=== PATIENT | female | born 1955 | race African-American/Black ===

== ENCOUNTER 2021-07-13 13:12 | Inpatient (IN) ==
[2021-07-13] MEDS ORDERED: MORPHINE 10 MG/1 ML VIAL IV STA (13:31)
[2021-07-13] MEDS ORDERED: NITROGLYCERIN 2% OINT 1 INCH/GM PACK TOP STA (13:31)
[2021-07-13] MEDS ORDERED: ONDANSETRON 4 MG/2 ML VIAL IV STA (13:31)
[2021-07-13 13:36] LABS: Basophils % 0.2 % (0.0-0.8); Eosinophils % 0.2 % (0.00-10.9); Hematocrit 34.6 VOL% (35.7-47.0); Hemoglobin 11.2 GM/DL (12.0-16.0); Immature Granulocytes % 0.5 %; Immature Granulocytes Absolute 0.05 #; Lymphocytes # 1.6 10*3/uL (1.4-4.0); Lymphocytes % 16.4 % (21.3-54.2); Mean Corpuscular HGB Conc 32.4 GM/DL (32-36); Mean Corpuscular Volume 87.8 FL (87-102); Mean Platelet Volume 9.5 FL (9.6-12.0); Monocytes # 1.2 10*3/uL (0.11-0.8); Monocytes % 12.5 % (1.7-12.7); Neutrophils % 70.2 % (38.7-73.9); Platelet Count 444 T/CUMM (130-400); Red Blood Count 3.94 MC/CUMM (3.8-5.5); White Blood Count 9.7 T/CUMM (4-12)
[2021-07-13] MEDS ORDERED: MORPHINE 2 MG/1 ML SYRINGE ONE (13:42)
[2021-07-13 14:01] LABS: Alanine Aminotransferase 19 U/L (13-56); Albumin 3.1 G/DL (3.4-5.0); Alkaline Phosphatase 106 U/L (45-117); Aspartate Amino Transferase 66 U/L (0-37); Bilirubin,Total < 0.39 MG/DL (0.20-1.00); Blood Urea Nitrogen 10 MG/DL (7-18); Carbon Dioxide 25 MMOL/L (21-32); Chloride 105 MMOL/L (98-107); Glucose 98 MG/DL (74-106); Osmolality,Calculated 271.8 MOS/KG (273-304); Potassium 3.8 MMOL/L (3.5-5.1); Sodium 137 MMOL/L (136-145); Total Protein 7.3 G/DL (6.4-8.2)
[2021-07-13] MEDS ORDERED: HEPARIN 5,000 UNIT/1 ML VIAL IV STA (14:01)
[2021-07-13] MEDS ORDERED: MORPHINE 2 MG/1 ML SYRINGE IV PRN (14:26)
[2021-07-13] MEDS ORDERED: DOCUSATE SODIUM 100 MG CAPSULE PO PRN (14:26)
[2021-07-13] MEDS ORDERED: guaiFENesin/DM ER 600-30 MG TABLET PO PRN (14:26)
[2021-07-13] MEDS ORDERED: hydrALAZINE 20 MG/1 ML VIAL IV PRN (14:26)
[2021-07-13] MEDS ORDERED: POTASSIUM CHLORIDE 20 MEQ TABLET PO PRN (14:26)
[2021-07-13] MEDS ORDERED: diphenhydrAMINE CAP 25 MG CAPSULE PO PRN (14:26)
[2021-07-13] MEDS ORDERED: ALUMINUM/MAGNES/SIMETH MAX STR 30 ML UDCUP PO PRN (14:26)
[2021-07-13] MEDS ORDERED: ZALEPLON 5 MG CAPSULE PO PRN (14:26)
[2021-07-13] MEDS ORDERED: MAGNESIUM SULF RIDER 2 GM/50 ML PREMIX IV PRN ×2 (14:26→14:37)
[2021-07-13] MEDS ORDERED: MAGNESIUM SULF RIDER 4 GM/100 ML PREMIX IV PRN (14:26)
[2021-07-13] MEDS ORDERED: ACETAMINOPHEN 325 MG TABLET PO PRN (14:26)
[2021-07-13] MEDS ORDERED: PROMETHAZINE 25 MG TABLET PO PRN (14:26)
[2021-07-13] MEDS ORDERED: POTASSIUM CHLORIDE RIDER 10 MEQ/100 ML PREMIX IV PRN (14:37)
[2021-07-13] MEDS ORDERED: DIAZEPAM 5 MG TABLET PO ONE (14:37)
[2021-07-13] MEDS ORDERED: diphenhydrAMINE CAP 50 MG CAPSULE PO ONE (14:37)
[2021-07-13] MEDS ORDERED: HEPARIN/NACL 0.9% 2 UNITS/ML 2,000 UNIT/1,000 ML BAG IV ONE (14:44)
[2021-07-13] MEDS: MORPHINE 2 MG/1 ML SYRINGE IV PRN (14:46)
[2021-07-13] MEDS: NITROGLYCERIN 2% OINT 1 INCH/GM PACK TOP SCH ×2 (14:49→20:37)
[2021-07-13] MEDS ORDERED: HYDROmorphone 1 MG/1 ML SYRINGE ONE (15:15)
[2021-07-13] MEDS ORDERED: MIDAZOLAM 2 MG/2 ML VIAL ONE (15:15)
[2021-07-13] MEDS ORDERED: VERAPAMIL 5 MG/2 ML VIAL ONE (15:27)
[2021-07-13] MEDS ORDERED: NITROGLYCERIN DRIP 50 MG/250 ML BOTTLE IV ONE (15:28)
[2021-07-13] MEDS: SODIUM CHLORIDE 0.45% 1,000 ML IV SCH ×2 (18:20→23:02)
[2021-07-13] MEDS: METOPROLOL TARTRATE 25 MG TABLET PO SCH (20:37)
[2021-07-14] MEDS: NITROGLYCERIN 2% OINT 1 INCH/GM PACK TOP SCH ×2 (02:15→09:09)
[2021-07-14] MEDS: SODIUM CHLORIDE 0.45% 1,000 ML IV SCH ×3 (02:39→16:00)
[2021-07-14] MEDS: MORPHINE 2 MG/1 ML SYRINGE IV PRN ×5 (02:41→20:29)
[2021-07-14 05:27] LABS: Basophils % 0.3 % (0.0-0.8); Eosinophils # 0.1 10*3/uL (0.0-0.87); Eosinophils % 0.6 % (0.00-10.9); Hematocrit 33.1 VOL% (35.7-47.0); Hemoglobin 10.3 GM/DL (12.0-16.0); Immature Granulocytes % 0.4 %; Immature Granulocytes Absolute 0.04 #; Lymphocytes # 2.5 10*3/uL (1.4-4.0); Lymphocytes % 23.4 % (21.3-54.2); Mean Corpuscular HGB Conc 31.1 GM/DL (32-36); Mean Corpuscular Volume 90.9 FL (87-102); Monocytes % 9.7 % (1.7-12.7); Neutrophils % 65.6 % (38.7-73.9); Platelet Count 408 T/CUMM (130-400); Red Blood Count 3.64 MC/CUMM (3.8-5.5); Red Cell Distribution Width 14.9 % (9.3-17.3); White Blood Count 10.6 T/CUMM (4-12)
[2021-07-14 05:49] LABS: Alanine Aminotransferase 20 U/L (13-56); Albumin 2.8 G/DL (3.4-5.0); Alkaline Phosphatase 102 U/L (45-117); Aspartate Amino Transferase 53 U/L (0-37); Bilirubin,Total < 0.39 MG/DL (0.20-1.00); Blood Urea Nitrogen 8 MG/DL (7-18); Calcium 8.5 MG/DL (8.5-10.1); Carbon Dioxide 25 MMOL/L (21-32); Chloride 105 MMOL/L (98-107); Cholesterol 225 MG/DL (50-200); Glucose 91 MG/DL (74-106); HDL Cholesterol 27 MG/DL (40-60); Osmolality,Calculated 272.7 MOS/KG (273-304); Potassium 3.1 MMOL/L (3.5-5.1); Risk Ratio 8.33; Sodium 138 MMOL/L (136-145); Total Protein 7.7 G/DL (6.4-8.2); Triglycerides 205 MG/DL (2-150)
[2021-07-14] MEDS: ROSUVASTATIN 20 MG TABLET PO SCH (09:08)
[2021-07-14] MEDS: ASPIRIN EC 81 MG TABLET PO SCH (09:08)
[2021-07-14] MEDS: PANTOPRAZOLE 40 MG TABLET PO SCH (09:09)
[2021-07-14] MEDS: METOPROLOL TARTRATE 25 MG TABLET PO SCH (09:09)
[2021-07-14] MEDS: HEPARIN DRIP 25,000 UNITS/500 ML PREMIX IV SCH (10:57)
[2021-07-14] MEDS: NITROGLYCERIN DRIP 50 MG/250 ML BOTTLE IV SCH (11:00)
[2021-07-14] MEDS ORDERED: METOPROLOL TARTRATE 25 MG TABLET PO ONE (11:14)
[2021-07-14] MEDS ORDERED: POTASSIUM CHLORIDE 20 MEQ TABLET PO ONE (11:16)
[2021-07-14 11:29] LABS: CKMB % 2.57 %
[2021-07-14 11:37] LABS: High Sensitive Troponin I* 5095.5 ng/L (0-54)
[2021-07-14] MEDS ORDERED: GLUCAGON 1 MG VIAL IM PRN (12:47)
[2021-07-14] MEDS: SPIRONOLACTONE 25 MG TABLET PO SCH (12:55)
[2021-07-14] MEDS ORDERED: DEXTROSE 10% 250 ML BAG IV PRN (13:01)
[2021-07-14] MEDS: METOPROLOL TARTRATE 50 MG TABLET PO SCH (20:24)
[2021-07-15] MEDS: MORPHINE 2 MG/1 ML SYRINGE IV PRN ×4 (00:21→22:54)
[2021-07-15 03:54] LABS: Basophils % 0.2 % (0.0-0.8); Eosinophils % 0.1 % (0.00-10.9); Hematocrit 33.6 VOL% (35.7-47.0); Hemoglobin 10.6 GM/DL (12.0-16.0); Immature Granulocytes % 0.4 %; Immature Granulocytes Absolute 0.04 #; Lymphocytes # 1.6 10*3/uL (1.4-4.0); Lymphocytes % 15.5 % (21.3-54.2); Mean Corpuscular HGB Conc 31.5 GM/DL (32-36); Mean Corpuscular Volume 88.4 FL (87-102); Mean Platelet Volume 10.2 FL (9.6-12.0); Monocytes # 1.2 10*3/uL (0.11-0.8); Monocytes % 11.4 % (1.7-12.7); Neutrophils % 72.4 % (38.7-73.9); Platelet Count 422 T/CUMM (130-400); Red Cell Distribution Width 14.8 % (9.3-17.3); White Blood Count 10.4 T/CUMM (4-12)
[2021-07-15 04:11] LABS: Alanine Aminotransferase 21 U/L (13-56); Albumin 2.8 G/DL (3.4-5.0); Alkaline Phosphatase 126 U/L (45-117); Aspartate Amino Transferase 71 U/L (0-37); Bilirubin,Total < 0.39 MG/DL (0.20-1.00); Blood Urea Nitrogen 5 MG/DL (7-18); Calcium 9.4 MG/DL (8.5-10.1); Carbon Dioxide 24 MMOL/L (21-32); Chloride 100 MMOL/L (98-107); Glucose 112 MG/DL (74-106); Osmolality,Calculated 263.4 MOS/KG (273-304); Potassium 3.4 MMOL/L (3.5-5.1); Sodium 133 MMOL/L (136-145); Total Protein 7.9 G/DL (6.4-8.2)
[2021-07-15 04:17] LABS: CKMB % 3.76 %
[2021-07-15 04:19] LABS: High Sensitive Troponin I* 7630.9 ng/L (0-54)
[2021-07-15 05:28] LABS: Arterial Base Excess iSTAT 4 MMOL/L (-2.5-2.5); Arterial Bicarbonate iSTAT 26.6 MMOL/L (20-26); Arterial O2 Saturation iSTAT 93 % (95-100); Arterial PCO2 iSTAT 35 MM HG (35-48); Arterial PO2 iSTAT 62 MM HG (80-95); Arterial Total CO2 iSTAT 28 MMO/L (23-27); Arterial pH iSTAT 7.489 (7.35-7.45)
[2021-07-15] MEDS ORDERED: POTASSIUM CHLORIDE 20 MEQ TABLET PO ONE (06:18)
[2021-07-15] MEDS ORDERED: ALBUTEROL/IPRATROPIUM 3 ML NEB RESP TX SCH (07:00)
[2021-07-15] MEDS: ROSUVASTATIN 20 MG TABLET PO SCH (08:05)
[2021-07-15] MEDS: PANTOPRAZOLE 40 MG TABLET PO SCH (08:05)
[2021-07-15] MEDS: ASPIRIN EC 81 MG TABLET PO SCH (08:05)
[2021-07-15] MEDS: SPIRONOLACTONE 25 MG TABLET PO SCH (08:05)
[2021-07-15] MEDS: ONDANSETRON 4 MG/2 ML VIAL IV PRN ×2 (08:05→14:10)
[2021-07-15] MEDS: METOPROLOL TARTRATE 50 MG TABLET PO SCH ×2 (08:05→20:43)
[2021-07-15] MEDS ORDERED: ALUM/MAG/SIMETH/LIDO VISC 1:1 30 ML BOTTLE PO ONE (08:56)
[2021-07-15 10:42] LABS: CKMB % 5.14 %
[2021-07-15 10:51] LABS: High Sensitive Troponin I* 11879.7 ng/L (0-54)
[2021-07-15] MEDS: RANOLAZINE 500 MG TABLET PO SCH ×2 (12:42→20:40)
[2021-07-15] MEDS: HEPARIN DRIP 25,000 UNITS/500 ML PREMIX IV SCH (12:46)
[2021-07-15] MEDS ORDERED: SODIUM CHLORIDE 0.9% 1,000 ML IV SCH (13:00)
[2021-07-15] MEDS: cefTRIAXone 1,000 MG in SODIUM CHLORIDE 0.9% 100 ML IV SCH (13:47)
[2021-07-15 14:32] LABS: RBC,Urine 2 /HPF (0-4); Squamous Epithelial Cell,Urine Occasional /HPF (0-10)
[2021-07-15 14:33] LABS: Bilirubin,Urine Negative (Negative); Blood, Urine Small mg/dL (Negative); Glucose,Urine (UA) Negative (Negative); Ketones,Urine 15 mg/dL (Negative); Nitrite,Urine Negative (Negative); Protein,Urine 30 mg/dL (Negative); Urine Appearance Clear (Clear); Urine Color Yellow (Yellow); Urine pH 6.5 (4.5-8.0)
[2021-07-15] MEDS ORDERED: PANTOPRAZOLE 40 MG TABLET PO ONE (15:10)
[2021-07-15] MEDS ORDERED: DIAZEPAM 5 MG TABLET PO ONE (15:10)
[2021-07-15] MEDS: CHLORHEXIDINE 4% SOLN 118 ML BOTTLE TOP SCH ×2 (16:13→21:06)
[2021-07-15 16:26] LABS: CKMB % 3.05 %
[2021-07-15 16:37] LABS: High Sensitive Troponin I* 12135.9 ng/L (0-54)
[2021-07-15] MEDS: NITROGLYCERIN DRIP 50 MG/250 ML BOTTLE IV SCH (17:48)
[2021-07-15] MEDS: CHLORHEXIDINE 0.12% ORAL RINSE 60 ML BOTTLE SWISH/SPIT SCH (20:40)
[2021-07-15] MEDS: ASCORBIC ACID 500 MG TABLET PO SCH (20:51)
[2021-07-16] MEDS: MORPHINE 2 MG/1 ML SYRINGE IV PRN ×3 (02:52→18:40)
[2021-07-16 03:05] LABS: CKMB % 1.6 %
[2021-07-16 03:06] LABS: High Sensitive Troponin I* 11841.3 ng/L (0-54)
[2021-07-16] MEDS ORDERED: PAPAVERINE 60 MG/2 ML VIAL ONE (04:20)
[2021-07-16] MEDS ORDERED: VANCOMYCIN 1,000 MG VIAL ONE (04:21)
[2021-07-16] MEDS ORDERED: VANCOMYCIN 500 MG VIAL ONE (04:21)
[2021-07-16] MEDS ORDERED: CEFUROXIME INJ 1,500 MG in SODIUM CHLORIDE 0.9% 100 ML IV ONE (05:00)
[2021-07-16] MEDS: CHLORHEXIDINE 4% SOLN 118 ML BOTTLE TOP SCH (05:21)
[2021-07-16] MEDS ORDERED: DIAZEPAM 5 MG TABLET PO ONE (05:30)
[2021-07-16] MEDS ORDERED: PANTOPRAZOLE 40 MG TABLET PO ONE (05:30)
[2021-07-16] MEDS ORDERED: MIDAZOLAM 10 MG/2 ML VIAL ONE ×3 (06:06→09:13)
[2021-07-16] MEDS ORDERED: SUFentanil 50 MCG/ML AMP ONE (06:07)
[2021-07-16] MEDS ORDERED: SUFentanil 250 MCG/5 ML AMP ONE (07:34)
[2021-07-16 07:39] LABS: ABG Base Excess 2.1 MMOL/L (-2.5-2.5); ABG HCO3 26.3 MMOL/L (20-26); ABG Oxygen Saturation 99.9 % (95-100); ABG TCO2 23.1 MMOL/L (23-27); Glucose Heart Surgery 127 MG/DL (74-106); Hematocrit Heart Surgery 29.3 PERCENT (37-47); Hemoglobin Heart Surgery 9.5 G/DL (12.0-16.0); Ionized Calcium Arterial 1.14 MMOL/L (1.21-1.46); Patient Temperature 37 CELCIUS; Potassium Heart/CVR 3.5 MMOL/L (3.5-5.1); Sodium Heart/CVR 136 MMOL/L (135-145)
[2021-07-16] MEDS ORDERED: SODIUM BICARBONATE 50 MEQ/50 ML VIAL IV ONE ×2 (08:05→11:59)
[2021-07-16] MEDS ORDERED: POTASSIUM CHLORIDE RIDER 20 MEQ/100 ML PREMIX IV ONE (08:06)
[2021-07-16] MEDS ORDERED: CALCIUM CHLORIDE 1,000 MG/10 ML SYRINGE IV ONE (08:06)
[2021-07-16] MEDS ORDERED: NITROPRUSSIDE 50 MG/2 ML VIAL ONE (08:06)
[2021-07-16] MEDS ORDERED: PHENYLEPHRINE DRIP 40 MG/250 ML PREMIX IV ONE (08:06)
[2021-07-16] MEDS ORDERED: LIDOCAINE 2% 5 ML VIAL ONE (08:15)
[2021-07-16] MEDS ORDERED: SODIUM CHLORIDE 0.9% 250 ML IV ONE (08:15)
[2021-07-16] MEDS ORDERED: PHENYLEPHRINE DRIP 20 MG/250 ML PREMIX IV ONE ×2 (08:15→10:12)
[2021-07-16] MEDS ORDERED: propofoL 200 MG/20 ML VIAL IV ONE (08:15)
[2021-07-16] MEDS ORDERED: SODIUM CHLORIDE 0.9% 1,000 ML IV ONE (08:15)
[2021-07-16] MEDS ORDERED: LACTATED RINGERS 1,000 ML IV ONE (08:15)
[2021-07-16] MEDS ORDERED: SEVOFLURANE 1 UNIT/15 MINUTE INH ONE ×2 (08:15→12:19)
[2021-07-16] MEDS ORDERED: VECURONIUM 10 MG VIAL IV ONE ×2 (08:15→09:11)
[2021-07-16] MEDS ORDERED: CALCIUM CHLORIDE 1,000 MG/10 ML VIAL IV ONE ×3 (09:11→12:21)
[2021-07-16 09:25] LABS: Hematocrit Heart Surgery 21.8 PERCENT (37-47); PCO2 Patient Temp Venous 37.1 MM HG; PH Patient Temp Venous 7.456; Potassium Heart/CVR 3.3 MMOL/L (3.5-5.1); VBG Base Excess 2.3 MEQ/L (0-4); VBG HCO3 26.1 MEQ/L (24-28); VBG Oxygen Saturation 66.9 %; VBG PCO2 37.1 MMHG (41-51); VBG PH 7.456; VBG Total CO2 24.8 MMOL/L
[2021-07-16] MEDS ORDERED: AMINOCAPROIC ACID 5,000 MG/20 ML VIAL ONE (09:26)
[2021-07-16 09:36] LABS: Mucus,Urine Occasional /LPF (Occasional); RBC,Urine 1 /HPF (0-4); Squamous Epithelial Cell,Urine Occasional /HPF (0-10)
[2021-07-16 09:37] LABS: Bilirubin,Urine Negative (Negative); Blood, Urine Trace mg/dL (Negative); Glucose,Urine (UA) Negative (Negative); Ketones,Urine Negative (Negative); Nitrite,Urine Negative (Negative); Protein,Urine 30 mg/dL (Negative); Urine Appearance Clear (Clear); Urine Color Dark Yellow (Yellow)
[2021-07-16 10:01] LABS: Hematocrit Heart Surgery 18.8 PERCENT (37-47); PCO2 Patient Temp Venous 37.2 MM HG; PH Patient Temp Venous 7.444; PO2 Patient Temp Venous 38.6 MM HG; Potassium Heart/CVR 4.2 MMOL/L (3.5-5.1); VBG Base Excess 1.6 MEQ/L (0-4); VBG HCO3 25.6 MEQ/L (24-28); VBG Oxygen Saturation 72.1 %; VBG PCO2 39.1 MMHG (41-51); VBG PH 7.429; VBG PO2 41.4 MMHG (17-40); VBG Total CO2 24.9 MMOL/L
[2021-07-16] MEDS: ASPIRIN EC 81 MG TABLET PO SCH (10:01)
[2021-07-16] MEDS: ROSUVASTATIN 20 MG TABLET PO SCH (10:01)
[2021-07-16] MEDS: SPIRONOLACTONE 25 MG TABLET PO SCH (10:01)
[2021-07-16] MEDS: RANOLAZINE 500 MG TABLET PO SCH (10:02)
[2021-07-16] MEDS: PANTOPRAZOLE 40 MG TABLET PO SCH (10:02)
[2021-07-16] MEDS: METOPROLOL TARTRATE 50 MG TABLET PO SCH ×2 (10:02→21:01)
[2021-07-16] MEDS: CHLORHEXIDINE 0.12% ORAL RINSE 60 ML BOTTLE SWISH/SPIT SCH ×2 (10:02→21:01)
[2021-07-16] MEDS: ASCORBIC ACID 500 MG TABLET PO SCH (10:03)
[2021-07-16 10:24] LABS: Hematocrit Heart Surgery 24.3 PERCENT (37-47); Hemoglobin Heart Surgery 7.8 G/DL (12.0-16.0); PCO2 Patient Temp Venous 30.9 MM HG; PH Patient Temp Venous 7.509; PO2 Patient Temp Venous 35.3 MM HG; VBG Base Excess 1.9 MEQ/L (0-4); VBG HCO3 25.9 MEQ/L (24-28); VBG Oxygen Saturation 80.7 %; VBG PCO2 35.7 MMHG (41-51); VBG PH 7.464; VBG PO2 43.5 MMHG (17-40)
[2021-07-16 10:55] LABS: Hematocrit Heart Surgery 23.3 PERCENT (37-47); Hemoglobin Heart Surgery 7.5 G/DL (12.0-16.0); PH Patient Temp Venous 7.554; PO2 Patient Temp Venous 33.4 MM HG; Potassium Heart/CVR 3.6 MMOL/L (3.5-5.1); VBG Base Excess 3.6 MEQ/L (0-4); VBG HCO3 27.4 MEQ/L (24-28); VBG Oxygen Saturation 79.3 %; VBG PCO2 33.5 MMHG (41-51); VBG PH 7.508; VBG PO2 41.1 MMHG (17-40)
[2021-07-16] MEDS ORDERED: ALBUMIN 25% 25 GM/100 ML VIAL IV ONE (11:54)
[2021-07-16] MEDS ORDERED: DEXTROSE 5% KCL 20 MEQ 40 MEQ/2,000 ML BAG IV ONE (11:54)
[2021-07-16] MEDS ORDERED: HEPARIN 10,000 UNIT/10 ML VIAL ONE (11:55)
[2021-07-16] MEDS ORDERED: ALBUMIN 5% 12.5 GM/250 ML VIAL IV ONE (11:55)
[2021-07-16] MEDS ORDERED: THROMBIN TOPICAL (RECOMBINANT) 5,000 UNIT VIAL TOP ONE (11:56)
[2021-07-16] MEDS ORDERED: PROTAMINE SULFATE 250 MG/25 ML VIAL IV ONE (11:58)
[2021-07-16] MEDS ORDERED: MAGNESIUM SULFATE 5 GM/10 ML VIAL IV ONE (11:58)
[2021-07-16] MEDS ORDERED: methylPREDNISolone SOD SUC 1,000 MG/8 ML VIAL ONE (11:58)
[2021-07-16] MEDS ORDERED: MANNITOL 12.5 GM/50 ML VIAL IV ONE (11:59)
[2021-07-16] MEDS ORDERED: PROTAMINE SULFATE 50 MG/5 ML VIAL IV ONE (11:59)
[2021-07-16] MEDS ORDERED: FUROSEMIDE 20 MG/2 ML VIAL ONE (11:59)
[2021-07-16 12:00] LABS: ABG Base Excess -1.8 MMOL/L (-2.5-2.5); ABG HCO3 22.9 MMOL/L (20-26); ABG Oxygen Saturation 96.9 % (95-100); ABG PCO2 43.6 MM HG (35-48); ABG PH 7.345 (7.35-7.45); ABG PO2 95.8 MM HG (80-95); ABG TCO2 22.5 MMOL/L (23-27); Glucose Heart Surgery 299 MG/DL (74-106); Hematocrit Heart Surgery 22.7 PERCENT (37-47); Hemoglobin Heart Surgery 7.3 G/DL (12.0-16.0); Ionized Calcium Arterial 1.44 MMOL/L (1.21-1.46); PCO2 Patient Temp Arterial 43.6 MMHG; PH Patient Temp Arterial 7.345; PO2 Patient Temp Arterial 95.8 MM HG; Patient Temperature 37 CELCIUS; Potassium Heart/CVR 3.5 MMOL/L (3.5-5.1); Sodium Heart/CVR 135 MMOL/L (135-145)
[2021-07-16] MEDS ORDERED: MAGNESIUM SULF RIDER 2 GM/50 ML PREMIX IV PRN (12:06)
[2021-07-16] MEDS ORDERED: ACETAMINOPHEN 650 MG SUPP RECTAL PRN (12:06)
[2021-07-16] MEDS ORDERED: CALCIUM CHLORIDE 1,000 MG/10 ML SYRINGE IV PRN (12:06)
[2021-07-16] MEDS ORDERED: MIDAZOLAM 10 MG/2 ML VIAL IV PRN (12:06)
[2021-07-16] MEDS ORDERED: MAGNESIUM SULF RIDER 4 GM/100 ML PREMIX IV PRN (12:06)
[2021-07-16] MEDS ORDERED: INSULIN REGULAR 100 UNIT/ML IV PRN (12:06)
[2021-07-16] MEDS ORDERED: PHENYLEPHRINE DRIP 40 MG/250 ML PREMIX IV PRN (12:06)
[2021-07-16] MEDS ORDERED: VECURONIUM 10 MG VIAL IV PRN ×2 (12:06)
[2021-07-16] MEDS ORDERED: CHLORHEXIDINE 4% SOLN 118 ML BOTTLE TOP PRN (12:06)
[2021-07-16] MEDS ORDERED: DEXTROSE 10% 250 ML BAG IV PRN ×2 (12:06)
[2021-07-16] MEDS ORDERED: INSULIN REGULAR 100 UNIT/ML IV ONE (12:06)
[2021-07-16] MEDS: cefTRIAXone 1,000 MG in SODIUM CHLORIDE 0.9% 100 ML IV SCH (12:07)
[2021-07-16] MEDS: NITROGLYCERIN DRIP 50 MG/250 ML BOTTLE IV SCH (12:08)
[2021-07-16] MEDS ORDERED: DOBUTamine 500 MG/250 ML PREMIX IV ONE ×2 (12:19→12:23)
[2021-07-16] MEDS ORDERED: DOBUTamine 500 MG/250 ML PREMIX IV PRN (12:24)
[2021-07-16] MEDS ORDERED: INSULIN REGULAR DRIP 100 ML IV SCH (12:30)
[2021-07-16] MEDS: SODIUM CHLORIDE 0.45% 1,000 ML IV SCH ×2 (12:45)
[2021-07-16] MEDS: LACTATED RINGERS 250 ML IV PRN ×5 (13:07→22:20)
[2021-07-16 13:25] LABS: ABG Base Excess 0.3 MMOL/L (-2.5-2.5); ABG HCO3 24.6 MMOL/L (20-26); ABG PCO2 46.2 MM HG (35-48); ABG PH 7.357 (7.35-7.45); ABG PO2 72.9 MM HG (80-95); ABG TCO2 24.4 MMOL/L (23-27); Glucose Heart Surgery 227 MG/DL (74-106); Hematocrit Heart Surgery 24.2 PERCENT (37-47); Hemoglobin Heart Surgery 7.8 G/DL (12.0-16.0); Potassium Heart/CVR 3.1 MMOL/L (3.5-5.1)
[2021-07-16 13:27] LABS: Basophils % 0.1 % (0.0-0.8); Eosinophils % 0.1 % (0.00-10.9); Hematocrit 23.5 VOL% (35.7-47.0); Hemoglobin 7.8 GM/DL (12.0-16.0); Immature Granulocytes % 0.6 %; Immature Granulocytes Absolute 0.08 #; Lymphocytes # 0.8 10*3/uL (1.4-4.0); Lymphocytes % 5.6 % (21.3-54.2); Mean Corpuscular HGB Conc 33.2 GM/DL (32-36); Mean Corpuscular Volume 86.7 FL (87-102); Mean Platelet Volume 9.4 FL (9.6-12.0); Monocytes # 0.5 10*3/uL (0.11-0.8); Neutrophils % 89.6 % (38.7-73.9); Platelet Count 280 T/CUMM (130-400); Red Blood Count 2.71 MC/CUMM (3.8-5.5); Red Cell Distribution Width 16.8 % (9.3-17.3); White Blood Count 13.7 T/CUMM (4-12)
[2021-07-16] MEDS: POTASSIUM CHLORIDE RIDER 20 MEQ/100 ML PREMIX IV PRN ×4 (13:33→21:33)
[2021-07-16 13:39] LABS: INR 1.2; Partial Thromboplastin Time 31.9 SECS (23.8-32.1)
[2021-07-16 13:49] LABS: CKMB % 3.95 %
[2021-07-16 13:54] LABS: Calcium 9.4 MG/DL (8.5-10.1); Osmolality,Calculated 279.5 MOS/KG (273-304); Potassium 3.1 MMOL/L (3.5-5.1)
[2021-07-16] MEDS ORDERED: NITROGLYCERIN DRIP 50 MG/250 ML BOTTLE IV ONE (14:38)
[2021-07-16] MEDS ORDERED: NITROGLYCERIN DRIP 50 MG/250 ML BOTTLE IV PRN (14:50)
[2021-07-16] MEDS: MIDAZOLAM 2 MG/2 ML VIAL IV PRN ×3 (14:52→22:24)
[2021-07-16 15:20] LABS: ABG Base Excess 1.8 MMOL/L (-2.5-2.5); ABG HCO3 25.9 MMOL/L (20-26); ABG Oxygen Saturation 93.3 % (95-100); ABG PCO2 38.7 MM HG (35-48); ABG PH 7.436 (7.35-7.45); ABG PO2 64.6 MM HG (80-95); Glucose Heart Surgery 216 MG/DL (74-106); Hematocrit Heart Surgery 36.7 PERCENT (37-47); Hemoglobin Heart Surgery 11.9 G/DL (12.0-16.0); Potassium Heart/CVR 4.2 MMOL/L (3.5-5.1)
[2021-07-16] MEDS: NITROPRUSSIDE 100 MG in DEXTROSE 5% 250 ML IV PRN (15:28)
[2021-07-16] MEDS ORDERED: MIDAZOLAM 2 MG/2 ML VIAL IV ONE (15:50)
[2021-07-16] MEDS ORDERED: LIDOCAINE 2% 20 ML VIAL MISC INJ ONE (16:33)
[2021-07-16 16:40] LABS: ABG Base Excess 2.9 MMOL/L (-2.5-2.5); ABG Oxygen Saturation 99.7 % (95-100); ABG PCO2 38.9 MM HG (35-48); ABG PH 7.448 (7.35-7.45); ABG TCO2 24.1 MMOL/L (23-27); Glucose Heart Surgery 200 MG/DL (74-106); Hematocrit Heart Surgery 33.9 PERCENT (37-47); Potassium Heart/CVR 4.2 MMOL/L (3.5-5.1)
[2021-07-16 17:42] LABS: ABG HCO3 27.1 MMOL/L (20-26); ABG Oxygen Saturation 99.2 % (95-100); ABG PCO2 38.8 MM HG (35-48); ABG PH 7.452 (7.35-7.45); ABG TCO2 24.1 MMOL/L (23-27); Glucose Heart Surgery 196 MG/DL (74-106); Hematocrit Heart Surgery 34.6 PERCENT (37-47); Hemoglobin Heart Surgery 11.2 G/DL (12.0-16.0)
[2021-07-16 18:25] LABS: ABG Base Excess 3.1 MMOL/L (-2.5-2.5); ABG HCO3 27.1 MMOL/L (20-26); ABG Oxygen Saturation 94.3 % (95-100); ABG PCO2 38.2 MM HG (35-48); ABG PH 7.457 (7.35-7.45); ABG PO2 69.8 MM HG (80-95); ABG TCO2 24.1 MMOL/L (23-27); Glucose Heart Surgery 190 MG/DL (74-106); Hematocrit Heart Surgery 33.8 PERCENT (37-47); Hemoglobin Heart Surgery 10.9 G/DL (12.0-16.0); Potassium Heart/CVR 4.3 MMOL/L (3.5-5.1)
[2021-07-16] MEDS: ACETAMINOPHEN 325 MG/10.15 ML UDCUP PO PRN (19:36)
[2021-07-16 20:12] LABS: ABG Base Excess 2.7 MMOL/L (-2.5-2.5); ABG HCO3 26.8 MMOL/L (20-26); ABG Oxygen Saturation 96.7 % (95-100); ABG PCO2 37.8 MM HG (35-48); ABG PH 7.456 (7.35-7.45); ABG TCO2 23.9 MMOL/L (23-27); Glucose Heart Surgery 166 MG/DL (74-106); Hemoglobin Heart Surgery 10.7 G/DL (12.0-16.0); Potassium Heart/CVR 4.1 MMOL/L (3.5-5.1)
[2021-07-16 20:39] LABS: CKMB % 3.38 %; High Sensitive Troponin I* 18930.6 ng/L (0-54)
[2021-07-16] MEDS: MORPHINE 10 MG/1 ML VIAL IV PRN (20:40)
[2021-07-16] MEDS ORDERED: FUROSEMIDE 40 MG/4 ML VIAL IV ONE (20:58)
[2021-07-16] MEDS: CEFUROXIME INJ 1,500 MG in SODIUM CHLORIDE 0.9% 100 ML IV SCH (21:01)
[2021-07-16] MEDS: ALBUMIN 5% 12.5 GM/250 ML VIAL IV PRN (21:28)
[2021-07-16 22:03] LABS: ABG Base Excess 0.3 MMOL/L (-2.5-2.5); ABG HCO3 24.7 MMOL/L (20-26); ABG Oxygen Saturation 99.1 % (95-100); ABG PCO2 44.4 MM HG (35-48); ABG PH 7.372 (7.35-7.45); ABG TCO2 23.4 MMOL/L (23-27); Glucose Heart Surgery 158 MG/DL (74-106); Hematocrit Heart Surgery 32.3 PERCENT (37-47); Hemoglobin Heart Surgery 10.4 G/DL (12.0-16.0); Potassium Heart/CVR 4.2 MMOL/L (3.5-5.1)
[2021-07-16] MEDS: POTASSIUM CHLORIDE RIDER 10 MEQ/100 ML PREMIX IV PRN (22:28)
[2021-07-17 00:29] LABS: ABG Base Excess 3.6 MMOL/L (-2.5-2.5); ABG HCO3 27.6 MMOL/L (20-26); ABG Oxygen Saturation 95.4 % (95-100); ABG PCO2 37.2 MM HG (35-48); ABG PH 7.472 (7.35-7.45); ABG PO2 74.7 MM HG (80-95); ABG TCO2 24.4 MMOL/L (23-27); Glucose Heart Surgery 167 MG/DL (74-106); Hematocrit Heart Surgery 33.5 PERCENT (37-47); Hemoglobin Heart Surgery 10.8 G/DL (12.0-16.0); Potassium Heart/CVR 3.9 MMOL/L (3.5-5.1)
[2021-07-17] MEDS: POTASSIUM CHLORIDE RIDER 10 MEQ/100 ML PREMIX IV PRN ×2 (02:01→05:29)
[2021-07-17] MEDS: ONDANSETRON 4 MG/2 ML VIAL IV PRN (02:45)
[2021-07-17] MEDS: MORPHINE 10 MG/1 ML VIAL IV PRN (03:04)
[2021-07-17 03:39] LABS: ABG Base Excess 1.8 MMOL/L (-2.5-2.5); ABG Oxygen Saturation 96.9 % (95-100); ABG PH 7.418 (7.35-7.45); ABG TCO2 23.8 MMOL/L (23-27); Glucose Heart Surgery 184 MG/DL (74-106); Hematocrit Heart Surgery 32.9 PERCENT (37-47); Hemoglobin Heart Surgery 10.7 G/DL (12.0-16.0); Potassium Heart/CVR 3.7 MMOL/L (3.5-5.1)
[2021-07-17] MEDS: ALBUMIN 5% 12.5 GM/250 ML VIAL IV PRN ×3 (03:40→11:15)
[2021-07-17 03:50] LABS: Basophils % 0.1 % (0.0-0.8); Hematocrit 31.1 VOL% (35.7-47.0); Hemoglobin 10.5 GM/DL (12.0-16.0); Immature Granulocytes % 0.5 %; Immature Granulocytes Absolute 0.07 #; Lymphocytes % 6.5 % (21.3-54.2); Mean Corpuscular HGB Conc 33.8 GM/DL (32-36); Mean Corpuscular Volume 84.5 FL (87-102); Mean Platelet Volume 10.3 FL (9.6-12.0); Monocytes # 0.4 10*3/uL (0.11-0.8); Monocytes % 2.9 % (1.7-12.7); Platelet Count 266 T/CUMM (130-400); Red Blood Count 3.68 MC/CUMM (3.8-5.5); Red Cell Distribution Width 17.2 % (9.3-17.3); White Blood Count 15.2 T/CUMM (4-12)
[2021-07-17] MEDS: METOPROLOL TARTRATE 50 MG TABLET PO SCH ×3 (04:07→20:16)
[2021-07-17 04:10] LABS: Bilirubin,Direct 0.2 MG/DL (0.0-0.20); Bilirubin,Total 0.5 MG/DL (0.20-1.00); Calcium 8.8 MG/DL (8.5-10.1); Osmolality,Calculated 274.7 MOS/KG (273-304); Potassium 3.8 MMOL/L (3.5-5.1); Total Protein 6.1 G/DL (6.4-8.2)
[2021-07-17 04:13] LABS: CKMB % 3.9 %
[2021-07-17] MEDS: MORPHINE 2 MG/1 ML SYRINGE IV PRN ×2 (04:19→06:00)
[2021-07-17] MEDS: POTASSIUM CHLORIDE RIDER 20 MEQ/100 ML PREMIX IV PRN (04:24)
[2021-07-17 04:36] LABS: ABG Base Excess 1.7 MMOL/L (-2.5-2.5); ABG HCO3 25.8 MMOL/L (20-26); ABG Oxygen Saturation 92.6 % (95-100); ABG PCO2 39.7 MM HG (35-48); ABG PH 7.426 (7.35-7.45); ABG PO2 68.7 MM HG (80-95); ABG TCO2 23.6 MMOL/L (23-27); Glucose Heart Surgery 188 MG/DL (74-106); Hematocrit Heart Surgery 31.7 PERCENT (37-47); Hemoglobin Heart Surgery 10.2 G/DL (12.0-16.0); Potassium Heart/CVR 3.7 MMOL/L (3.5-5.1)
[2021-07-17] MEDS: NITROPRUSSIDE 100 MG in DEXTROSE 5% 250 ML IV PRN ×2 (05:29→06:16)
[2021-07-17] MEDS: CEFUROXIME INJ 1,500 MG in SODIUM CHLORIDE 0.9% 100 ML IV SCH ×2 (07:41→20:16)
[2021-07-17] MEDS: CHLORHEXIDINE 0.12% ORAL RINSE 60 ML BOTTLE SWISH/SPIT SCH ×2 (08:27→20:16)
[2021-07-17] MEDS ORDERED: GLUCAGON 1 MG VIAL IM PRN (08:39)
[2021-07-17] MEDS: HEPARIN DRIP 25,000 UNITS/500 ML PREMIX IV SCH (08:44)
[2021-07-17] MEDS ORDERED: DEXTROSE 10% 250 ML BAG IV PRN (08:44)
[2021-07-17] MEDS ORDERED: HYDROmorphone 1 MG/1 ML SYRINGE IV PRN (08:50)
[2021-07-17] MEDS: HYDROmorphone 1 MG/1 ML SYRINGE IV PRN ×4 (08:56→22:59)
[2021-07-17] MEDS: KETOROLAC 30 MG/1 ML VIAL IV SCH ×3 (09:02→20:16)
[2021-07-17] MEDS: ASPIRIN 325 MG TABLET PO SCH (09:03)
[2021-07-17] MEDS: amLODIPine 10 MG TABLET PO SCH (09:03)
[2021-07-17] MEDS: cloNIDine 0.1 MG TABLET PO SCH (09:03)
[2021-07-17] MEDS: INSULIN REGULAR 100 UNIT/ML SUBCUT SCH ×4 (11:33→23:25)
[2021-07-17] MEDS ORDERED: INSULIN REGULAR 100 UNIT/ML SUBCUT SCH (12:00)
[2021-07-17 13:48] LABS: CKMB % 3.46 %; High Sensitive Troponin I* 14681.1 ng/L (0-54)
[2021-07-17] MEDS: SODIUM CHLORIDE 0.45% 1,000 ML IV SCH ×2 (13:48)
[2021-07-17 16:01] LABS: CKMB % 3.25 %; High Sensitive Troponin I* 15231.6 ng/L (0-54)
[2021-07-17] MEDS: DIAZEPAM 5 MG TABLET PO SCH (20:16)
[2021-07-18] MEDS: ONDANSETRON 4 MG/2 ML VIAL IV PRN (00:25)
[2021-07-18] MEDS: KETOROLAC 30 MG/1 ML VIAL IV SCH ×4 (02:34→21:25)
[2021-07-18 04:10] LABS: Basophils % 0.1 % (0.0-0.8); Hemoglobin 9.6 GM/DL (12.0-16.0); Lymphocytes # 2.2 10*3/uL (1.4-4.0); Lymphocytes % 12.3 % (21.3-54.2); Mean Corpuscular Volume 87.5 FL (87-102); Mean Platelet Volume 10.8 FL (9.6-12.0); Monocytes % 5.8 % (1.7-12.7); Neutrophils % 81.2 % (38.7-73.9); Platelet Count 225 T/CUMM (130-400); Red Blood Count 3.43 MC/CUMM (3.8-5.5); Red Cell Distribution Width 17.4 % (9.3-17.3); White Blood Count 17.5 T/CUMM (4-12)
[2021-07-18 04:30] LABS: CKMB % 2.76 %; High Sensitive Troponin I* 15292.4 ng/L (0-54)
[2021-07-18 04:38] LABS: Bilirubin,Direct 0.11 MG/DL (0.0-0.20); Bilirubin,Total 0.4 MG/DL (0.20-1.00); Calcium 8.4 MG/DL (8.5-10.1); Osmolality,Calculated 270.1 MOS/KG (273-304); Potassium 4.2 MMOL/L (3.5-5.1); Total Protein 5.9 G/DL (6.4-8.2)
[2021-07-18] MEDS: INSULIN REGULAR 100 UNIT/ML SUBCUT SCH ×5 (05:03→21:27)
[2021-07-18] MEDS: HYDROmorphone 1 MG/1 ML SYRINGE IV PRN ×3 (06:27→14:16)
[2021-07-18] MEDS: cloNIDine 0.1 MG TABLET PO SCH (08:00)
[2021-07-18] MEDS: ASPIRIN 325 MG TABLET PO SCH (08:00)
[2021-07-18] MEDS: DIAZEPAM 5 MG TABLET PO SCH ×2 (08:00→21:26)
[2021-07-18] MEDS: METOPROLOL TARTRATE 50 MG TABLET PO SCH ×2 (08:01→21:26)
[2021-07-18] MEDS: amLODIPine 10 MG TABLET PO SCH (08:01)
[2021-07-18] MEDS: CHLORHEXIDINE 0.12% ORAL RINSE 60 ML BOTTLE SWISH/SPIT SCH ×2 (08:01→21:26)
[2021-07-18] MEDS: LEVALBUTEROL 1.25 MG/3 ML NEB RESP TX SCH ×3 (11:10→20:05)
[2021-07-18 11:32] LABS: CKMB % 2.16 %
[2021-07-18 11:33] LABS: High Sensitive Troponin I* 13337.6 ng/L (0-54)
[2021-07-18] MEDS: SODIUM CHLORIDE 0.45% 1,000 ML IV SCH ×2 (13:48)
[2021-07-18] MEDS ORDERED: FUROSEMIDE 40 MG/4 ML VIAL IV ONE (15:21)
[2021-07-18 15:34] LABS: Arterial Base Excess iSTAT 3 MMOL/L (-2.5-2.5); Arterial Bicarbonate iSTAT 27.9 MMOL/L (20-26); Arterial O2 Saturation iSTAT 89 % (95-100); Arterial PCO2 iSTAT 43 MM HG (35-48); Arterial PO2 iSTAT 56 MM HG (80-95); Arterial Total CO2 iSTAT 29 MMO/L (23-27); Arterial pH iSTAT 7.424 (7.35-7.45)
[2021-07-18] MEDS ORDERED: MORPHINE 2 MG/1 ML SYRINGE IV PRN ×2 (16:30→16:41)
[2021-07-18] MEDS ORDERED: DEXMEDETOMIDINE 200 MCG in SODIUM CHLORIDE 0.9% 48 ML IV PRN (17:08)
[2021-07-18] MEDS ORDERED: HALOPERIDOL 5 MG/ML AMP IV ONE (18:30)
[2021-07-18] MEDS ORDERED: HALOPERIDOL 5 MG/ML AMP IV PRN (18:47)
[2021-07-18] MEDS: ROSUVASTATIN 20 MG TABLET PO SCH (21:26)
[2021-07-19] MEDS: LEVALBUTEROL 1.25 MG/3 ML NEB RESP TX SCH ×4 (00:41→20:08)
[2021-07-19] MEDS ORDERED: FUROSEMIDE 40 MG/4 ML VIAL IV ONE (01:00)
[2021-07-19] MEDS: KETOROLAC 30 MG/1 ML VIAL IV SCH ×4 (02:50→20:10)
[2021-07-19 04:43] LABS: Basophils % 0.2 % (0.0-0.8); Eosinophils # 0.1 10*3/uL (0.0-0.87); Eosinophils % 0.5 % (0.00-10.9); Hematocrit 27.7 VOL% (35.7-47.0); Hemoglobin 9.1 GM/DL (12.0-16.0); Immature Granulocytes % 0.5 %; Immature Granulocytes Absolute 0.06 #; Lymphocytes % 15.1 % (21.3-54.2); Mean Corpuscular HGB Conc 32.9 GM/DL (32-36); Mean Corpuscular Volume 86.8 FL (87-102); Mean Platelet Volume 10.5 FL (9.6-12.0); Monocytes # 0.7 10*3/uL (0.11-0.8); Monocytes % 5.7 % (1.7-12.7); NRBC # 0.02 10*3/uL; Platelet Count 283 T/CUMM (130-400); Red Blood Count 3.19 MC/CUMM (3.8-5.5); Red Cell Distribution Width 17.1 % (9.3-17.3); White Blood Count 12.9 T/CUMM (4-12)
[2021-07-19 05:06] LABS: Albumin 2.8 G/DL (3.4-5.0); Bilirubin,Direct 0.16 MG/DL (0.0-0.20); Bilirubin,Total 0.5 MG/DL (0.20-1.00); Calcium 8.5 MG/DL (8.5-10.1); Osmolality,Calculated 278.5 MOS/KG (273-304); Potassium 3.4 MMOL/L (3.5-5.1); Total Protein 6.4 G/DL (6.4-8.2)
[2021-07-19] MEDS: POTASSIUM CHLORIDE RIDER 20 MEQ/100 ML PREMIX IV PRN ×2 (05:50→06:53)
[2021-07-19 06:07] VITALS: BP 87/64
[2021-07-19] MEDS: INSULIN REGULAR 100 UNIT/ML SUBCUT SCH ×4 (07:47→20:34)
[2021-07-19] MEDS: METOPROLOL TARTRATE 25 MG TABLET PO SCH ×2 (08:13→20:10)
[2021-07-19] MEDS: DIAZEPAM 5 MG TABLET PO SCH ×2 (08:13→20:10)
[2021-07-19] MEDS: ASPIRIN 325 MG TABLET PO SCH (08:13)
[2021-07-19] MEDS: CHLORHEXIDINE 0.12% ORAL RINSE 60 ML BOTTLE SWISH/SPIT SCH ×2 (09:04→20:34)
[2021-07-19] MEDS: SPIRONOLACTONE 25 MG TABLET PO SCH (09:09)
[2021-07-19] MEDS: FUROSEMIDE 40 MG/4 ML VIAL IV SCH ×2 (09:09→16:25)
[2021-07-19] MEDS: oxyCODONE/ACETAMINOPHEN 5-325 MG TABLET PO PRN ×3 (09:24→20:10)
[2021-07-19] MEDS: ASCORBIC ACID 500 MG TABLET PO SCH ×2 (13:49→20:10)
[2021-07-19] MEDS: ROSUVASTATIN 20 MG TABLET PO SCH (20:10)
[2021-07-20] MEDS: oxyCODONE/ACETAMINOPHEN 5-325 MG TABLET PO PRN ×5 (00:50→21:02)
[2021-07-20] MEDS: KETOROLAC 30 MG/1 ML VIAL IV SCH ×4 (03:30→20:22)
[2021-07-20 04:28] LABS: Arterial Base Excess iSTAT 8 MMOL/L (-2.5-2.5); Arterial Bicarbonate iSTAT 32.5 MMOL/L (20-26); Arterial O2 Saturation iSTAT 86 % (95-100); Arterial PCO2 iSTAT 46 MM HG (35-48); Arterial PO2 iSTAT 50 MM HG (80-95); Arterial Total CO2 iSTAT 34 MMO/L (23-27); Arterial pH iSTAT 7.456 (7.35-7.45)
[2021-07-20 05:06] LABS: Basophils % 0.2 % (0.0-0.8); Eosinophils # 0.2 10*3/uL (0.0-0.87); Eosinophils % 1.3 % (0.00-10.9); Hematocrit 28.5 VOL% (35.7-47.0); Hemoglobin 9.1 GM/DL (12.0-16.0); Immature Granulocytes % 0.7 %; Immature Granulocytes Absolute 0.08 #; Lymphocytes # 2.4 10*3/uL (1.4-4.0); Lymphocytes % 20.2 % (21.3-54.2); Mean Corpuscular HGB Conc 31.9 GM/DL (32-36); Mean Corpuscular Volume 89.6 FL (87-102); Mean Platelet Volume 10.2 FL (9.6-12.0); Monocytes # 0.8 10*3/uL (0.11-0.8); Monocytes % 6.4 % (1.7-12.7); Neutrophils % 71.2 % (38.7-73.9); Platelet Count 352 T/CUMM (130-400); Red Blood Count 3.18 MC/CUMM (3.8-5.5); Red Cell Distribution Width 17.1 % (9.3-17.3); White Blood Count 12.1 T/CUMM (4-12)
[2021-07-20 05:31] LABS: Calcium 8.7 MG/DL (8.5-10.1); Osmolality,Calculated 272.8 MOS/KG (273-304); Potassium 3.5 MMOL/L (3.5-5.1)
[2021-07-20] MEDS: POTASSIUM CHLORIDE RIDER 10 MEQ/100 ML PREMIX IV PRN (06:05)
[2021-07-20] MEDS: POTASSIUM CHLORIDE RIDER 20 MEQ/100 ML PREMIX IV PRN (07:09)
[2021-07-20] MEDS: LEVALBUTEROL 1.25 MG/3 ML NEB RESP TX SCH ×4 (07:26→19:51)
[2021-07-20] MEDS: INSULIN REGULAR 100 UNIT/ML SUBCUT SCH ×4 (08:22→20:20)
[2021-07-20] MEDS: methylPREDNISolone SOD SUC 40 MG/1 ML VIAL IV SCH ×3 (08:27→22:43)
[2021-07-20] MEDS: ASPIRIN 325 MG TABLET PO SCH (08:28)
[2021-07-20] MEDS: DIAZEPAM 5 MG TABLET PO SCH ×2 (08:29→20:19)
[2021-07-20] MEDS: ASCORBIC ACID 500 MG TABLET PO SCH ×2 (08:29→20:18)
[2021-07-20] MEDS: SPIRONOLACTONE 25 MG TABLET PO SCH (08:29)
[2021-07-20] MEDS: METOPROLOL TARTRATE 100 MG TABLET PO SCH ×2 (08:29→20:18)
[2021-07-20] MEDS: FUROSEMIDE 40 MG/4 ML VIAL IV SCH ×2 (08:35→15:52)
[2021-07-20] MEDS: CHLORHEXIDINE 0.12% ORAL RINSE 60 ML BOTTLE SWISH/SPIT SCH ×2 (09:38→20:22)
[2021-07-20] MEDS: ONDANSETRON 4 MG/2 ML VIAL IV PRN (17:09)
[2021-07-20] MEDS: DOCUSATE SODIUM 100 MG CAPSULE PO SCH (20:18)
[2021-07-20] MEDS: ROSUVASTATIN 20 MG TABLET PO SCH (20:18)
[2021-07-21] MEDS: LEVALBUTEROL 1.25 MG/3 ML NEB RESP TX SCH ×3 (01:20→13:31)
[2021-07-21] MEDS: oxyCODONE/ACETAMINOPHEN 5-325 MG TABLET PO PRN ×4 (01:40→14:05)
[2021-07-21] MEDS: KETOROLAC 30 MG/1 ML VIAL IV SCH ×3 (03:22→15:16)
[2021-07-21 03:25] LABS: Basophils % 0.1 % (0.0-0.8); Hematocrit 31.6 VOL% (35.7-47.0); Immature Granulocytes % 0.7 %; Immature Granulocytes Absolute 0.12 #; Lymphocytes # 0.8 10*3/uL (1.4-4.0); Lymphocytes % 4.4 % (21.3-54.2); Mean Corpuscular HGB Conc 31.6 GM/DL (32-36); Mean Platelet Volume 10.2 FL (9.6-12.0); Monocytes # 0.5 10*3/uL (0.11-0.8); Monocytes % 2.9 % (1.7-12.7); Neutrophils % 91.9 % (38.7-73.9); Platelet Count 452 T/CUMM (130-400); Red Blood Count 3.55 MC/CUMM (3.8-5.5); Red Cell Distribution Width 17.2 % (9.3-17.3)
[2021-07-21 03:44] LABS: Alanine Aminotransferase 27 U/L (13-56); Albumin 3.2 G/DL (3.4-5.0); Alkaline Phosphatase 180 U/L (45-117); Aspartate Amino Transferase 31 U/L (0-37); Bilirubin,Total < 0.39 MG/DL (0.20-1.00); Blood Urea Nitrogen 16 MG/DL (7-18); Calcium 9.6 MG/DL (8.5-10.1); Carbon Dioxide 32 MMOL/L (21-32); Chloride 97 MMOL/L (98-107); Glucose 158 MG/DL (74-106); Osmolality,Calculated 273.1 MOS/KG (273-304); Sodium 135 MMOL/L (136-145); Total Protein 7.9 G/DL (6.4-8.2)
[2021-07-21 03:50] LABS: Hypochromia Slight; Lymphocytes 3 % (20-55); Microcytosis Slight; Platelet Estimate Adequate; Total Cells Counted 100
[2021-07-21] MEDS: DIAZEPAM 5 MG TABLET PO SCH (08:42)
[2021-07-21] MEDS: DOCUSATE SODIUM 100 MG CAPSULE PO SCH (08:43)
[2021-07-21] MEDS: ASCORBIC ACID 500 MG TABLET PO SCH (08:44)
[2021-07-21] MEDS: SPIRONOLACTONE 25 MG TABLET PO SCH (08:44)
[2021-07-21] MEDS: METOPROLOL TARTRATE 100 MG TABLET PO SCH (08:45)
[2021-07-21] MEDS: FUROSEMIDE 40 MG/4 ML VIAL IV SCH (08:45)
[2021-07-21] MEDS: INSULIN REGULAR 100 UNIT/ML SUBCUT SCH ×3 (08:46→17:05)
[2021-07-21] MEDS: methylPREDNISolone SOD SUC 40 MG/1 ML VIAL IV SCH ×2 (08:47→15:16)
[2021-07-21] MEDS ORDERED: ASPIRIN EC 81 MG TABLET PO SCH (09:00)
[2021-07-21] MEDS ORDERED: VALSARTAN 80 MG TABLET PO SCH (09:00)
[2021-07-21] MEDS ORDERED: POLYETHYLENE GLYCOL POWDER 17 GM PACK PO SCH (09:00)
[2021-07-21] MEDS: DILTIAZEM 60 MG TABLET PO SCH ×2 (09:41→15:18)
[2021-07-21] MEDS: CHLORHEXIDINE 0.12% ORAL RINSE 60 ML BOTTLE SWISH/SPIT SCH (09:41)
[2021-07-21] MEDS: ACETAMINOPHEN 325 MG/10.15 ML UDCUP PO PRN (15:49)
[2021-07-21] MEDS ORDERED: FUROSEMIDE 40 MG/4 ML VIAL IV SCH (16:00)
== END 2021-07-21 18:02 | disposition left against medical advice (07) | DRG 233 ==
LOC: N.ED 13:12 → N.EDINP 14:26 → N.TELEN 15:20 → N.CVR 07-16 09:53 → N.ICU 07-17 11:11
PROVIDERS: ADMIT Internal Medicine Cardiovascular Disease